=== PATIENT | female | born 1950 | race Caucasian/White ===

== ENCOUNTER 2025-04-14 08:58 | Outpatient (AMB) | payer MEDICARE, SELFPAY ==
--- NOTE | 2025-04-14 09:02 | A.OFFVIS_ITS ---
Vital Signs 3 04/14/25 09:04 Height 5 ft 3 in Weight 154 lb 5.177 oz BMI 27.3 BP 124/66 Blood Pressure Location Lt brachial Position Sitting Pulse 72 Pulse Source Pulse Oximeter Pulse Oximetry (%) 94 Oxygen Delivery Method Room Air Intake Visit Reasons: Hypothyroidism Intake Note: New patient present today for Hypothyroidism. 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 Preferred name Ariane Continue levothyroxine 75 mcg daily. Has been on this for 5 years, stable for some time. No recent TFTs in the chart. reports tiredness. reports cold intolerance. Constipation improved now. Lost 30 lbs after below mentioned surgeries but now gaining it back. no palpitations. No tremors. feels hair is thinner. no mood changes. 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 ? Patient denies any difficulty swallowing, pain on swallowing or voice changes or difficulty breathing. Patient denies any history of childhood neck radiation. Denies having ever used lithium, amiodarone or biotin supplements. Patient denies any family history of thyroid cancer. 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 Physical exam General: sitting comfortably in no acute distress HEENT: normocephalic/atraumatic, Neck: supple, prominent right side of the thyroid, possible nodule Cardiac: normal heart sounds Pulm: normal breath sounds B/L, no added breath sounds Abd: not distended, no tenderness PFSH Medical History (Updated 04/14/25 @ 09:34 by Jacqueline Bates MD) Thyromegaly Hypothyroid HLD (hyperlipidemia) HTN (hypertension) Surgical History (Updated 04/14/25 @ 09:10 by HUMAIRA Mcgarry) H/O bladder repair surgery History of colon resection H/O: hysterectomy Family History (Updated 04/14/25 @ 09:12 by HUMAIRA Mcgarry) Mother Cancer Father Stroke Advanced dementia Social History (Updated 04/14/25 @ 09:12 by HUMAIRA Mcgarry) Alcohol intake: current Alcohol intake frequency: 0-2 drinks per day Patient Tobacco Use Status: Never used Tobacco Physical Exam Vital Signs: Last Vital Signs Pulse 72 04/14/25 09:04 BP 124/66 04/14/25 09:04 Pulse Ox 94 04/14/25 09:04 Oxygen Delivery Method Room Air 04/14/25 09:04 BMI result Body Mass Index 27.3 Assessment & Plan Assessment & Plan (1) Hypothyroid: Code(s): E03.9 - Hypothyroidism, unspecified Category: Medical Qualifiers: 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 No recent TFTs in the chart. Her major concern is increased tiredness over the past few months, and she reports this is very different from her prior baseline. At this time we will check her thyroid function tests. She is on biotin supplements, I have asked her to hold these 3-4 days before doing blood work as biotin can interfere with thyroid function test. Plan: -continue levothyroxine 75 mcg daily -ordered TSH and free T4 -follow up in 8 weeks to discuss results (2) Thyromegaly: Code(s): E01.0 - Iodine-deficiency related diffuse (endemic) goiter Category: Medical Plan: Also noted to have a prominent right side of the thyroid, possible nodule on the right side. We will check ultrasound of the thyroid. 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
[2025-04-14 09:04] VITALS: BP 124/66; PULSE 72; O2SAT 94; BMI 27.3
--- OUTSIDE RECORDS SUMMARY | 2025-04-14 09:15 | XMS_ITS | Data Portability ---
Author Organization [place] - [facility], Allergy Address [address] [address] Care Team Providers Care Commercial Print Salesman Name Role Phone DEXTER BLACKMAN Primary Care Provider [phone] Assessment Encounter Date Assessment Date Assessment LastModified by Organization Details LastModified Time 10/05/2024 10/05/2024 Patient with persistent sensation of fullness left ear. She has left TMJ tenderness and some negative pressure on examination. Audiogram reviewed and stable. Discussed option of imaging but patient declines. Suggest warm compresses soft diet and massage jschreibstein Not available 10/05/2024 08:56:41 Plan of Treatment Reminders Order Date Submit Date Provider Last Modified By Organization Details Last Modified Time Details Appointments Hearing Test 2024 10:00A M Hearing Test Not available Not available Not available Establish ed 30 2024 10:30A M HEIDI STEPHENSON MD Not available Not available Not available Lab None recorded. Referral None recorded. Procedures None recorded. Surgeries None recorded. Imaging None recorded. Medication Orders None recorded. Patient TargetsNo targets recorded. Patient InstructionsNo instructions recorded. Reason for Referral None Reported. Results Created Date Observation Date Name Description Value Unit Range Abnormal Flag Note LastModifiedBy Organization Detail LastModifiedTime 10/05/20 24 audio gram No observ ation record ed. BARCODE Not Available 2023 10:56:30 10/06/20 24 audio gram No observ ation record ed. BARCODE Not Available 2023 16:09:00 Result Notes None recorded. Problems Name Problem SNOMED Code Status Onset Date Resolution Date Notes Provider Name and Address Organization Details Recorded Time Deviated nasal septum 544169346 Active 2023 Deviated nasal septum; Note: Date Diagnosed: 02/08/2024 10:31 AM (J34.2) Not Available [facility] 4 03:04:09 Sensorine ural hearing loss of bilateral ears 840965552 Active 2023 Sensorineu ral hearing loss, bilateral; Note: Date Diagnosed: 02/08/2024 10:19 AM (H90.3) Not Available [facility] 4 03:04:10 Abnormal auditory perceptio n 89885472 Active 2023 Other abnormal auditory perception s, left ear; Note: Date Diagnosed: 02/08/2024 10:31 AM (H93.292) Not Available [facility] 4 03:04:10 Chronic rhinitis 81090246 Active 2023 Chronic rhinitis; Note: Date Diagnosed: 02/08/2024 10:31 AM (J31.0) Not Available [facility] 4 03:04:11 Dysfuncti on of eustachia n tube 58734445 Active 2023 HEIDI QUINTERO MD [address] [facility],[place] [address], [place], [address] , [place] - [facility] 4 08:56:00 Abnormal auditory perceptio n 85460535 Active 2023 HEIDI QUINTERO MD [address] [facility],[place] [address], [place], [address] , [place] - [facility] 4 08:56:06 Obstructi ve sleep apnea syndrome 49524729 Active 2023 HEIDI QUINTERO MD 100 [facility], [place], [address] , [place] - [facility] [place] 4 09:42:02 Pain of temporoma ndibular joint 15554058 Active 2023 HEIDI QUINTERO MD 100 [facility], [place], [address] , [place] - [facility] [place] 4 09:42:08 Problem Notes None recorded. Procedures Surgical History Date Name Laterality Status Provider Name and Address Organization Details Recorded Time 10/05/20 24 Air & Speech Audio with Tymps - 56427, 05737 & 44206 completed Patrizia Meier [facility] 10/05/2024 09:20:20 hysterectomy completed HEIDI EARL MD 100 [facility],[place] [address], [place], [address], [facility] 10/05/2024 08:50:58 excision of colon completed HEIDI EARL MD [address],[facility], [place], [address], [facility] 10/05/2024 08:52:28 Imaging Results None recorded. Procedure Notes None recorded. Medical Equipment None Reported. Allergies Allergen ID Allergen Name Allergen Category Reaction Reaction Severity Criticality Documentation Date Start Date Code Code System Note Provider Name and Address Organization Details Recorded Time 070763 codeine medicatio n other Not available Not available 05/20/2024 2670 RxNorm React ion: Unkno wn; Not Available [facility] 4 00:35:40 861686 Substance with sulfonami de structure and antibacte rial mechanism of action (substanc e) medicatio n other Not available Not available 05/20/2024 55317 8003 SNOMED React ion: Unkno wn; Not Available [facility] 4 00:35:40 383927 Product containin g penicilli n (product) medicatio n other Not available Not available 05/20/2024 97358 8001 SNOMED React ion: Unkno wn; Not Available [facility] 4 00:35:41 Medications Name Sig Start Date Stop Date Status Note LastModified by Organization Details LastModified Time acetaminophe n 325 mg tablet TAKE 1 TABLET BY MOUTH EVERY 4 HOURS, NEEDED FOR PAIN active Not Available Not Available No t Available loperamide 2 mg capsule TAKE 1 CAPSULE BY MOUTH TWO TIMES A DAY BEFORE BREAKFAST AND DINNER NEEDED FOR LOOSE STOOL active Not Available Not Available No t Available atorvastatin 10 mg tablet TAKE 1 TABLET BY MOUTH EVERY DAY active Not Available Not Available No t Available azithromycin 250 mg tablet TAKE 2 TABLETS BY MOUTH TODAY, THEN TAKE 1 TABLET DAILY FOR 4 DAYS DIRECTED active Not Available Not Available No t Available amlodipine 5 mg tablet TAKE 1 TABLET BY MOUTH EVERY DAY active Not Available Not Available No t Available levothyroxin e 75 mcg tablet TAKE 1 TABLET BY MOUTH EVERY DAY active Not Available Not Available No t Available doxycycline monohydrate 100 mg capsule TAKE 1 CAPSULE BY MOUTH TWICE A DAY FOR 7 DAYS active Not Available Not Available No t Available oxybutynin chloride ER 5 mg tablet,exten ded release 24 hr TAKE 1 TABLET BY MOUTH EVERY DAY active Not Available Not Available No t Available fluticasone propionate 50 mcg/actuatio n nasal spray,suspen alida SPRAY 2 SPRAYS INTRANASALL Y DAILY active Not Available Not Available No t Available oxycodone 5 mg tablet TAKE 1 TABLET BY MOUTH EVERY 6 HOURS NEEDED FOR PAIN active Not Available Not Available No t Available enoxaparin 40 mg/0.4 mL subcutaneous syringe INJECT THE CONTENTS OF 1 SYRINGE SUBCUTANEOU SLY EVERY DAY FOR 28 DAYS active Not Available Not Available No t Available nitrofuranto in monohydrate/ macrocrystal s 100 mg capsule TAKE 1 CAPSULE BY MOUTH TWICE DAILY FOR 5 DAYS. active Not Available Not Available No t Available Vitals Date Recorded Body height Body mass index (BMI) Body weight Provider Name and Address Organization Details Last Updated DateTime 10/05/2024 160.02 cm 26.9 kg/m2 54415.04 g Enmanuel Blackburn [place] - [facility] 10/05/2024 08:49:09 Social History None recorded. Functional Status None recorded. Mental Status None recorded. Family History Nothing Reported. Medical History Condition Response Cancer Y Hypertension Y Sleep Disorder Gynecological HistoryNo gynecological history recorded. Obstetrics History GPAL:G 0 P 0 0 0 0 Past Encounters Encounter ID Performer Location Encounter Start Date Encounter Closed Date Diagnosis/Indication Diagnosis SNOMED-CT Code Diagnosis ICD10 Code Diagnosis Note [id number] HEIDI QUINTERO MD [facility] [address] [address] 10/05/2024 08:35:18 10/05/2024 09:46:18 Abnormal auditory perception 89789621 H93.292 Dysfunctio n of eustachian tube 13732447 H69.92 Obstructiv e sleep apnea syndrome 76797580 G47.33 Pain of temporomandibular joint 51695740 M26.629 Appears to have referred discomfort due to TMJ dysfunctio n left side. She does have a mandibular appliance but has not been wearing it recently since she started CPAP. She will try to wear both if possible [id number] TAYLOR MOYA [facility] [address] [place] [address] 10/05/2024 09:19:33 10/06/2024 06:58:33 Sensorineural hearing loss of bilateral ears 655790688 H90.3 Audiologic al evaluation results: Right ear: Normal sloping to a mild SNHL at 3kHz returnign to WNL with excellent word recognitio n. Left ear: Normal sloping to a mild SNHL at 2kHz returnign to WNL with excellent word recognitio n.Asymmetr ic hearing loss from 1-3kHz, worst in the right. Tympanomet ry: Right Ear:Type A Left Ear:Type A Health Concerns Section Related Observation LastModified by Organization Detai ls LastModified Time None Recorded Concern Status LastModified by Organization Details LastModified Time None Recorded Advance Directives Directive None Recorded Payers Insurance Date Sequence Insurance Name Policy Number Policy Morel Covered Member ID Morel Member ID Guarantor Name 10/05/2024 2 [facility] [id number] Marla A Constant [id number] Marla A Constant 10/05/2024 1 [place]IC[place] [employer] [facility] Marla A Constant [id number] Marla A Constant Notes Date Note Type Note Provider Name and Address Organization Details Recorded Time 10/05/2024 text/html Patient continue s to have intermittent sensation of fullness in the left ear. Previously felt to be likely related to eustachian tube dysfunction and TMJ. She had asymmetry of hearing right compared to left. Since our last visit she had her ileostomy reversed. Feels that she is doing very well. No other complaints. Specifically no eating, drinking, or swallowing difficulties. No change in voice HEIDI EARL MD [address] [address], [place], [address], [facility] - [facility] 10/05/2024 09:43:33 OBGyn Episode No OBEpisode recorded.
== END 2025-04-14 09:36 | disposition home or self-care (01) ==
LOC: HO.ENCR 08:59
PROVIDERS: Visit Provider Student in an Organized Health Care Education/Training Program
DX: E06.3 Autoimmune thyroiditis (principal); E01.0 Iodine-deficiency related diffuse (endemic) goiter
CPT/HCPCS: 99204

== ENCOUNTER → 2025-04-14 08:58 | Outpatient (BNVA) | payer MEDICARE, SELFPAY | PROVIDERS: Visit Provider Student in an Organized Health Care Education/Training Program | DX: E06.3 Autoimmune thyroiditis (principal); E01.0 Iodine-deficiency related diffuse (endemic) goiter | CPT/HCPCS: 99202 ==

== ENCOUNTER 2025-04-24 14:22 | Outpatient (REF) | payer MEDICARE, SELFPAY ==
--- OUTSIDE RECORDS SUMMARY | 2025-04-24 15:01 | XMS_ITS | Data Portability ---
Author Organization [place] - [facility], Allergy Address [address] [address] Care Team Providers Care Market Maker Name Role Phone DEXTER BLACKMAN Primary Care Provider Assessment Encounter Date Assessment Date Assessment LastModified [...] Organization Details Recorded Time Deviated nasal septum 136931570 Active 2023 Deviated nasal septum; Note: Date Diagnosed: 02/08/2024 10:31 AM (J34.2) Not Available [facility] 4 03:04:09 Sensorine ural hearing loss of bilateral ears 022113970 Active 2023 Sensorineu ral hearing loss, bilateral; Note: Date Diagnosed: 02/08/2024 10:19 AM (H90.3) Not Available [facility] 4 03:04:10 Abnormal auditory perceptio n 21283808 Active 2023 Other abnormal auditory perception s, left ear; Note: Date Diagnosed: 02/08/2024 10:31 AM (H93.292) Not Available [facility] 4 03:04:10 Chronic rhinitis 99593016 Active 2023 Chronic rhinitis; Note: Date Diagnosed: 02/08/2024 10:31 AM (J31.0) Not Available [facility] 4 03:04:11 Dysfuncti on of eustachia n tube 59773576 Active 2023 HEIDI QUINTERO MD 100 [facility],[place] [address], [place], [address] , [place] - [facility] 4 08:56:00 Abnormal auditory perceptio n 49842125 Active 2023 HEIDI QUINTERO MD 100 [facility],[place] [address], [place], [address] , [place] - [facility] 4 08:56:06 Obstructi ve sleep apnea syndrome 71791976 Active 2023 HEIDI QUINTERO MD 100 [facility], [place], [address] , [place] - [facility] 4 09:42:02 Pain of temporoma ndibular joint 63596795 Active 2023 HEID[facility] QUINTERO MD 100 [facility] [place], [place], [address] , [place] - [facility] 4 09:42:08 Problem Notes None recorded. Procedures Surgical History Date Name Laterality Status Provider Name and Address Organization Details Recorded Time 10/05/20 24 Air & Speech Audio with Tymps - 72429, 26311 & 15143 completed Patrizia Meier [facility] 10/05/2024 09:20:20 hysterectomy completed HEIDI EARL MD 100 [facility],[place] [place] [address], [place], [address], [facility] 10/05/2024 08:50:58 excision of colon completed HEIDI EARL MD [address],[facility], [place], [address], [facility] 10/05/2024 08:52:28 Imaging Results None recorded. Procedure Notes None recorded. Medical Equipment None Reported. Allergies Allergen ID Allergen Name Allergen Category Reaction Reaction Severity Criticality Documentation Date Start Date Code Code System Note Provider Name and Address Organization Details Recorded Time 438338 codeine medicatio n other Not available Not available 05/20/2024 2670 RxNorm React ion: Unkno wn; Not Available [facility] 4 00:35:40 091170 Substance with sulfonami de structure and antibacte rial mechanism of action (substanc e) medicatio n other Not available Not available 05/20/2024 28439 8003 SNOMED React ion: Unkno wn; Not Available [facility] 4 00:35:40 851191 Product containin g penicilli n (product) medicatio n other Not available Not available 05/20/2024 16505 8001 SNOMED React ion: Unkno wn; Not Available [facility] 4 00:35:41 Medications Name Sig Start Date [...] Updated DateTime 10/05/2024 160.02 cm 26.9 kg/m2 48167.04 g Enmanuel Blackburn [place] - [facility] 10/05/2024 08:49:09 Social History None recorded. Functional Status None recorded. Mental Status None recorded. Family History Nothing Reported. Medical History Condition Response Cancer Y Sleep Disorder Hypertension Y Gynecological HistoryNo gynecological history recorded. Obstetrics History GPAL:G 0 P 0 0 0 0 Past Encounters Encounter ID Performer Location Encounter Start Date Encounter Closed Date Diagnosis/Indication Diagnosis SNOMED-CT Code Diagnosis ICD10 Code Diagnosis Note [id number] HEIDI QUINTERO MD [facility] [address] [address] 10/05/2024 08:35:18 10/05/2024 09:46:18 Abnormal auditory perception 61980434 H93.292 Dysfunctio n of eustachian tube 11454794 H69.92 Obstructiv e sleep apnea syndrome 26760741 G47.33 Pain of temporomandibular joint 75761518 M26.629 Appears to have referred discomfort due to TMJ dysfunctio n left side. She does have a mandibular appliance but has not been wearing it recently since she started CPAP. She will try to wear both if possible [id number] TAYLOR MOYA [facility] 100 [place] [address] 10/05/2024 09:19:33 10/06/2024 06:58:33 Sensorineural hearing loss of bilateral ears 249329640 H90.3 Audiologic al evaluation results: Right ear: [...] Morel Member ID Guarantor Name 10/05/2024 2 [facility] [id number] Marla A Constant [id number] Marla A Constant 10/05/2024 1 [place]IC[place]: [employer] [facility] Marla A Constant [id number] Marla A Constant Notes Date Note [...] change in voice HEIDI EARL MD [address] [address], [place], [address], [facility] - [facility] 10/05/2024 09:43:33 OBGyn Episode No OBEpisode recorded.
--- OUTSIDE RECORDS SUMMARY | 2025-04-24 15:01 | XMS_ITS | Encounter Summary ---
Author Organization [facility] Address [address] [place] [address] Care Team Providers Care Pie Filling Mixer Name Role Phone Andrea Abdullahi MD Primary Care Provider [phone] Encounter Details Date Type Department Care Team (Late st Contact Info) Description 12/08/2024 Lab Requisition [facility] - Main Lab [address] [place] [phone] Logan Sánchez MD [address] [address] Frequency of micturition Social History Tobacco Use Types Packs/Day Years Used Date Smoking Tobacco: Never Assessed Comments Unknown Sex and Gender Information Value Date Recorded Sex Assigned at Not on file Legal Sex Female 6:10 PM EST Gender Identity Not on file Sexual Orientation Not on file documented as of this encounter Plan of Treatment Not on file documented as of this encounter Procedures Procedure Name Priority Date/Time Associated Diagnosis Comments CULTURE URINE Routine 12/08/2024 12:00 AM EST Frequency of micturition documented in this encounter Results * Culture urine (12/08/2024 12:00 AM EST) Culture, Urine No growth 12/09/2024 1:15 PM EST [facility] Urine Urine specimen obtained by clean catch procedure / Unknown 12/08/2024 12/08/2024 6:15 PM EST Logan Sánchez MD LAB MICROBIOLOGY - GE NERAL ORDERABLES Final Result [facility] [address] [place], [place] [address] [phone] documented in this encounter Visit Diagnoses Diagnosis Frequency of micturition Urinary frequency documented in this encounter Care Teams Pie Filling Mixer Relationship Specialty Start Date End Date Andrea Abdullahi MD [address] [place] [address] PCP - General Internal Medicine 12/08/24 documented as of this encounter
[2025-04-24 16:31] LABS: Free T4 (Free Thyroxine) 0.99 ng/dL (0.71-1.85); Thyroid Stimulating Hormone 1.91 uIU/mL (0.32-4.0)
== END 2025-04-24 14:23 | disposition home or self-care (01) ==
LOC: HO.LAB 14:22
PROVIDERS: PCP Internal Medicine; Visit Provider Student in an Organized Health Care Education/Training Program
DX: E03.9 Hypothyroidism, unspecified (principal)
CPT/HCPCS: 36415; 84439; 84443

== ENCOUNTER 2025-05-25 15:36 | Outpatient (REF) | payer MEDICARE, SELFPAY ==
--- OUTSIDE RECORDS SUMMARY | 2025-05-23 23:59 | XMS_ITS | Continuity of Care Document ---
Author Organization [facility] Address [address] [place] [address] [address] [place] [address]- Care Team Providers Care Competitive Intelligence Manager Name Role Phone Kaylen WILL, Andrea Prajapati Primary Care Physician [phone] Encounter [place] [facility] R [id number] Date(s): 05/16/25 - 05/23/[address] [place], [place] [address] Encounter Diagnosis Chronic constipation(Discharge Diagnosis) - 05/16/25 Attending Physician: Selene TURNER, Elizabeth Bolivar Encounter Type: Office Visit Allergies, Adverse Reactions, Alerts Substance Criticality Severity Reaction Reaction Severity Status codeine headace, vomit Hives Active penicillins 1 Hives Active sulfa drugs 2 headaches Active Latex Skin rash Active Other Food Allergy 3 Scallop allergy=vomitting Active 1tolerates cefepime 2Pt unsure of reaction... 3scallops - throw up Immunizations Given and Recorded Vaccine Date Status Refusal Reason tetanus-diphtheria toxoids (Td) 06/17/24 Given tetanus-diphtheria toxoids (Td) 03/20/05 Recorded pneumococcal 20-valent conjugate vaccine 06/12/23 Given SARS-CoV-2 (COVID-19) mRNA BNT-162b2 vac 07/22/21 Recorded SARS-CoV-2 (COVID-19) mRNA BNT-162b2 vac 01/20/21 Recorded SARS-CoV-2 (COVID-19) mRNA BNT-162b2 vac 12/30/20 Recorded pneumococcal 13-valent vaccine 01/23/17 Recorded pneumococcal 23-valent vaccine 01/15/15 Recorded tetanus/diphtheria/pertussis, acel(Tdap) 01/13/14 Recorded Zoster Vaccine Live 03/08/13 Recorded Medications amLODIPine 5 mg oral tablet 1 tablet = 5 mg, By Mouth, Daily, TAKE 1 TABLET BY MOUTH EVERY DAY, # 90 tablet, 3 Refills, Maintenance, 04/10/25 8:50:00 AM EDT, Tablet, [facility]/pharmacy #[id number], Partial fill upon patient request if the prescription is for a schedule II opioid drug., 160, cm, 04/10/25 8:18:00 EDT, Height, 68, kg, 12/29/24 12:10:00 EDT, Dry Weight Start Date: 04/10/25 Stop Date: 04/05/26 Status: Ordered Quantity: 90.0 Unit: tablet Repeat number: 4 aspirin 81 mg oral tablet 1 tablet = 81 mg, By Mouth, Daily, # 90 tablet, 0 Refills, Maintenance, 09/24/23 12:36:00 PM EST, Tablet, Partial fill upon patient request if the prescription is for a schedule II opioid drug. Start Date: 09/24/23 Status: Ordered Quantity: 90.0 Unit: tablet Repeat number: 1 atorvastatin 10 mg oral tablet 1 tablet = 10 mg, By Mouth, Daily, # 90 tablet, 3 Refills, Maintenance, 04/10/25 8:50:00 AM EDT, [id number], Partial fill upon patient request if the prescription is for a schedule II opioid drug., 160, cm, 04/10/25 8:18:00 EDT, Height, 68, kg, 12/29/24 12:10:00 EDT, Dry Weight Start Date: 04/10/25 Status: Ordered Quantity: 90.0 Unit: tablet Repeat number: 4 Claritin 10 mg oral tablet 10 mg, 1, tablet, By Mouth, Daily in AM, Maintenance, 09/13/23 12:28:00 AM EST, Partial fill upon patient request if the prescription is for a schedule II opioid drug. Start Date: 09/13/23 Status: Ordered Repeat number: 1 CPAP Machine CPAP 6, # 1 each, Maintenance, 05/16/24 12:51:00 PM EDT, Supply Start Date: 05/16/24 Status: Ordered Quantity: 1.0 Unit: each Repeat number: 1 Indications: Obstructive sleep apnea (adult) (pediatric); Curcumin 95 = 500 mg, By Mouth, Daily, 0 Refills, Maintenance, 03/06/25 3:54:00 PM EDT, Partial fill upon patient request if the prescription is for a schedule II opioid drug. Start Date: 03/06/25 Status: Ordered Repeat number: 1 fluticasone 50 mcg/inh nasal spray 2 sprays = 100 mcg, Nares, Both, Daily in AM, 0 Refills, Maintenance, 02/19/24 12:08:00 PM EDT, [facility], Partial fill upon patient request if the prescription is for a schedule II opioid drug. Start Date: 02/19/24 Status: Ordered Repeat number: 1 levothyroxine 75 mcg (0.075 mg) oral tablet 1 tablet, By Mouth, Daily, # 90 tablet, 3 Refills, Maintenance, 04/10/25 8:50:00 AM EDT, [facility]/pharm[facility] #[id number], 160, cm, 04/10/25 8:18:00 EDT, Height, 68, kg, 12/29/24 12:10:00 EDT, Dry Weight Start Date: 04/10/25 Status: Ordered Quantity: 90.0 Unit: tablet Repeat number: 4 oxybutynin 10 mg/24 hr oral tablet, extended release 90 each, 0 Refill(s), TAKE 1 TABLET BY MOUTH EVERY DAY, 0 Refills, 03/06/25 4:11:00 PM EDT, Partial fill upon patient request if the prescription is for a schedule II opioid drug. Start Date: 03/06/25 Status: Ordered Repeat number: 1 Pelvic Floor PT Pelvic Floor PT, See Instructions, # 1 each, Refills 0, Tot. Refills 0, Maintenance, Pelvic floor physical therapy, 05/17/25 2:00:00 PM EDT, Supply Start Date: 05/17/25 Status: Ordered Quantity: 1.0 Unit: each Repeat number: 1 Vitamin D3 2000 intl units oral capsule 1 capsule = 50 mcg, By Mouth, Daily, # 60 capsule, 0 Refills, Maintenance, 10/05/24 11:02:00 AM EST, Capsule, Partial fill upon patient request if the prescription is for a schedule II opioid drug. Start Date: 10/05/24 Status: Ordered Quantity: 60.0 Unit: capsule Repeat number: 1 Problem List Condition Confirmation Course Effective Dates Status Health Status Informant Allergic rhinitis Confirmed Active Splenic artery aneurysm 1 Confirmed Active Anxiety Confirmed Active Benign paroxysmal vertigo Confirmed Active Chronic constipation Confirmed Active Pancreatic cyst Confirmed Active Somnolence, daytime Confirmed Active Gallstones Confirmed Active Status post closure of ileostomy Confirmed Active History of endometrial cancer Confirmed Active Status post partial colectomy Confirmed Active Hypercholesterolemia Confirmed Active HLD (hyperlipidemia) 2 Confirmed Active Hypertension Confirmed Active Hypothyroidism 3 Confirmed Active Insomnia Confirmed Active Lind syndrome Confirmed Active Morning stiffness of joints Confirmed Active Obstructive sleep apnea Confirmed Active OA (osteoarthritis), shoulder and neck Confirmed Active UI (urinary incontinence) Confirmed Active Varicose veins Confirmed Active Colovesical fistula Confirmed Active 1Noted on abdominal CT September 2018. 210-year cardiac risk 14.0%. 3Antibody negative. Diagnosis Diagnosis Type Effective Dates Health Status Clinical Service Informant Chronic constipation Discharge Diagnosis 05/16/25 Social History Social History Type Response Smoking Status Never (less than 100 in lifetime) entered on: 08/27/18 Sex Sex Representation Female (finding) Note * Shelby Pham: PERFORM Event Display: Patient Education/Instruction Authored Date: [id number] Ambulatory Adult Visit Summary [facility] Surgery [address] [place] [address] Drive [address] [place] [address] Name: BRITT AGUILERA : 1950?? Visit: 05/16/2025 11:11?? Ambulatory Visit Instructions ?? Your Care Team Primary Care Provider Kaylen WILL, Andrea Prajapati? This Visit Provider Selene TURNER, Elizabeth Bolivar Your Diagnosis Chronic constipation What to do next Scheduled Follow-Up Appointments Thursday 8:00 AM EDT ?? With: Ralph HENDERSON, Carmela Woodard Where: [facility] [address] [facility] 4[address] [place] [address] [place] [address]- Status: Pending Thursday 9:00 AM EDT ?? With: Shu HENDERSON, Ruba Reed Where: [facility] [address] [place] [address]- Status: Pending Future Orders CBC w/ Differential - Once, *Est. 05/19/24 +/- 28 days, Single or Recurring Future Order?? Ferritin - Once, *Est. 05/19/24 +/- 28 days, Single or Recurring Future Order?? Folate Level - Once, *Est. 05/19/24 +/- 28 days, Single or Recurring Future Order?? Vitamin B12 Level (B12 Vitamin Level) - Once, *Est. 05/19/24 +/- 28 days, Single or Recurring Future Order?? CBC - Routine, Once, 08/16/24 9:45:00 EDT, Future Order, [facility], Blood?? Comprehensive Metabolic Panel - Routine, Once, 08/16/24 9:45:00 EDT, Future Order, [facility], Blood?? Lipid Panel - Routine, Once, 08/16/24 9:45:00 EDT, Future Order, [facility], Blood?? Thyroid Panel - Routine, Once, 08/16/24 9:45:00 EDT, Future Order, [facility], Blood?? CBC - Routine, Once, 09/07/25 8:50:00 EST, Future Order, [facility], Blood?? Comprehensive Metabolic Panel - Routine, Once, 09/07/25 8:50:00 EST, Future Order, [facility], Blood?? Thyroid Panel - Routine, Once, 09/07/25 8:50:00 EST, Future Order, [facility], Blood?? Lipid Panel - Routine, Once, 09/07/25 8:50:00 EST, Future Order, [facility], Blood?? Medications The list below reflects the information in our records and provided by you today along with any changes made during this visit. Please continue your medications until treatment is completed or stopped by your provider. If this is different from the information you have or there are other questions,please contact the prescribing provider. What How Much When Why Instructions Unchanged Amlodipine (amLODIPine 5 mg oral tablet) 1 tab(s) Oral Daily Duration: 90 Days TAKE 1 TABLET BY MOUTH EVERY DAY ?? Unchanged Aspirin (aspirin 81 mg oral tablet) 1 tab(s) Oral Daily Unchanged Atorvastatin (atorvastatin 10 mg oral tablet) 1 tab(s) Oral Daily Unchanged Cholecalciferol (Vitamin D3 2000 intl units oral capsule) 1 capsule Oral Daily Unchanged Durable Medical Equipment (CPAP Machine) CPAP 6 Obstructive sleep apnea Unchanged Fluticasone Nasal (fluticasone 50 mcg/ inh nasal spray) 2 spray(s) Nares, Both Daily in the morning Unchanged Levothyroxine (levothyroxine 75 mcg (0.075 mg) oral tablet) 1 tab(s) Oral Daily Unchanged Loratadine (Claritin 10 mg oral tablet) 1 tab(s) Oral Daily in the morning Unchanged Oxybutynin (oxybutynin 10 mg/ 24 hr oral tablet, extended release) 90 each, 0 Refill(s), TAKE 1 TABLET BY MOUTH EVERY DAY ?? Unchanged turmeric (Curcumin 95) 500 Milligram Oral Daily Medications and Immunizations Administered Medications Given During Visit No medications given during this visit.?? Allergies (NKA means No Known Allergies) Latex??(Skin rash) Other Food Allergy??(Scallop allergy=vomitting) codeine??(headace, vomit, Hives) penicillins??(Hives) sulfa drugs??(headaches) Common Emergency Awareness Tips IS IT A STROKE? Act FAST and Check for these signs: FACE Does the face look uneven? ARM Does one arm drift down? SPEECH Does their speech sound strange? TIME Call at any sign of stroke ?? Heart Attack Signs Chest discomfort: Most heart attacks involve discomfort in the center of the chest and lasts more than a few minutes, or goes away and comes back. It can feel like uncomfortable pressure, squeezing, fullness or pain. Discomfort in upper body: Symptoms can include pain or discomfort in one or both arms, back, neck, jaw or stomach. Shortness of breath: With or without discomfort. Other signs: Breaking out in a cold sweat, nausea, or lightheaded. Remember, MINUTES DO MATTER. If you experience any of these heart attack warning signs, call to get immediate medical attention! ?? Smoking can increase your chances of developing chronic health problems and can cause harmful effects to other family members in your house. If you smoke, you are strongly encouraged to quit. Please call [facility] at [phone] or 1-893-497mphoria ([phone]) or log in to [email or web address] for referrals to smoking cessation programs. ?? The National Suicide Prevention Hotline is available 11/05 if you or someone you know needs to find a reason to keep living. By calling 1-327-005-fnnb (2945) you'll be connected to a skilled, trained counselor at a crisis center in your area. [facility] You can view and manage your care through the patient portal or by using a health care herb of your choosing. [employer] is a website that allows you to securely view your medical information including your hospital discharge summary, office visit summaries, medications and follow-up visits. You can also request appointments, renew medications, and request access to your medical information using a health care herb of your choosing, or just ask a question. You can enroll at [email or web address] or register during your next office visit. [facility], in keeping with [facility] guidance, no longer requires face masks for staff, patientsor visitors in most situations. Similiar to time spent indoors at other locations, there is the chance that you were exposed to repiratory viruses during your time with us (such as flu or COVID-19). If you develop symptoms concerning for a viral respiratory infection, please seek testing (and treatment if indicated) from your medical provider or home test kit. ?? Disclaimer: The information provided is of a general nature and is intended to be used in conjunction with the recommendations and advice of your health care practitioner. Every effort has been made to ensure that the information provided is accurate and complete at the time it is provided to you however, as your needs change, or, as new information becomes available, different or additional instructions may be required. ?? If you have questions, please consult with your primary care provider or pharmacist, as appropriate. This information is not intended to serve as substitution for assessment and evaluation by a qualified health care provider. If you do not have a primary care provider, you may find a [facility] provider by calling [facility] at [phone]. Patient Care team information Care Team Personnel Name: Belkys Warren RN Position: [facility] RN Member Role: Primary Care Nurse Name: Rose Rajput RN Position: S RN Member Role: Primary Care Nurse Name: Andrea Abdullahi MD Position: [facility] Physician - Primary Care Member Role: PCP Address: [address] [place] [address]- Telecom: Name: Heena Workman RN Position: [facility] RN Member Role: Primary Care Nurse Name: John Valles RN Position: [facility] RN Member Role: Primary Care Nurse Name: Velia Diane RN Position: [facility] RN Member Role: Primary Care Nurse Name: Erica Tovar RN Position: [facility] RN Member Role: Primary Care Nurse Name: Dex Riley RN Position: [facility] RN Member Role: Primary Care Nurse Name: Anali Benz RN Position: [facility] RN Member Role: Primary Care Nurse Name: Hannah Blackburn RN Position: [facility] RN Member Role: Primary Care Nurse Name: Elizabeth Jutsin RN Position: [facility] RN Member Role: Primary Care Nurse Name: Trudi Rosales RN Position: [facility] RN Member Role: Primary Care Nurse Care Team Related Persons Name: MORIAH AGUILERA Name: JAKOB PRIETO Insurance Providers Guarantor name: BRITT AGUILERA Health Plan Information #: 1 Payer: MEDICARE B Payer Identifier: Member Number: [id number] Group Number: Subscriber Identifier: [id number] Relationship to Subscriber: self Coverage Type: NA Coverage Verification Date: Telecom: NA Address: Health Plan Information #: 2 Payer: MEDEX SECONDARY ONLY Payer Identifier: Member Number: [id number] Group Number: [id number] Subscriber Identifier: [id number] Relationship to Subscriber: self Coverage Type: Medicare Other Coverage Verification Date: Telecom: Address:
--- NOTE | ~2025-05-25 | US_ITS ---
EXAMINATION: US THYROID HISTORY: E01.0 - Iodine-deficiency related diffuse (endemic) goiter TECHNIQUE: Real-time grayscale ultrasound imaging was performed and images were reviewed. COMPARISON: There are no prior studies available for comparison. FINDINGS: SIZE: The right thyroid lobe measures 5.6 x 1.9 x 1.5 cm. The left thyroid lobe measures 4.4 x 1.8 x 1.6 cm. The isthmus measures 2 mm. FLOW: Flow to the gland is normal. ECHOGENICITY: The echotexture of the gland is homogeneous. NODULES: There is a 5 mm spongiform nodule in the midportion of the right thyroid lobe. Additional right-sided nodules are identified as described below: Nodule #: 1 Location: Midportion of the right thyroid lobe measuring 7 x 5 x 7 mm. Shape: Wider than tall (0 points) Margins: Ill-defined (0 points) Echotexture: Isoechoic (1 point) Composition: Mostly solid (2 points) Calcifications: None (0 points) Total points: 3 TIRADS: TR3: Mildly suspicious. Nodule #: 2 Location: Mid to lower pole of the right thyroid lobe measuring 7 x 4 x 8 mm. Shape: Wider than tall (0 points) Margins: Ill-defined (0 points) Echotexture: Isoechoic (1 point) Composition: Mostly solid (2 points) Calcifications: None (0 points) Total points: 3 TIRADS: TR3: Mildly suspicious. US/US thyroid IMPRESSION: Subcentimeter right thyroid nodules as described. None of the nodules meet ACR TI-RADS criteria for fine needle aspiration or follow up. ACR TI-RADS Guidelines TR1 (0 points): Benign. No follow-up or biopsy required TR2 (2 points): Not Suspicious. No biopsy or follow up indicated TR3 (3 points): Mildly Suspicious. FNA if >= 2.5 cm, Follow if >= 1.5 cm TR4 (4-6 points): Moderately Suspicious. FNA if >= 1.5 cm, Follow if >= 1.0 cm TR5 (>=7 points): Highly Suspicious. FNA if >= 1.0 cm, Follow if >= 0.5 cm Electronically signed by: Yomi Pang MD 05/26/2025 07:09 AM EDT RP
--- OUTSIDE RECORDS SUMMARY | 2025-05-25 15:39 | XMS_ITS | Clinical Summary ---
Author Organization [facility] Address [address] [place] [address] Phone Care Team Providers Care Data Base Design Analyst Name Role Phone Andrea Adbullahi MD Primary Care Provider [phone] Allergies Active Allergy Reactions Criticality Noted Date Comments Codeine Other (See Comments) 07/03/2023 Latex Rash Low 07/03/2023 Penicillin Erythema Multiforme 07/03/2023 tolerates cefepime Sulfa (Sulfonamide Antibiotics) 07/03/2023 Pt unsure of reaction... Medications amLODIPine (NORVASC) 5 MG tablet Take 1 tablet by mouth every morning. 04/07/2023 Active levothyroxine (SYNTHROID, LEVOTHROID) 75 MCG tablet Take 1 tablet by mouth every morning. 04/06/2023 Active aspirin 81 mg chewable tablet Take 81 mg by mouth daily. Active Family History Medical History Relation Comments Dementia Father Relation Status Comments Father Mother Social History Tobacco Use Types Packs/Day Years Used Date Smoking Tobacco: Never Smokeless Tobacco: Never Tobacco Cessation:Counseling Given: Not Answered Alcohol Use Standard Drinks/Week Comments Yes 0 (1 standard drink = 0.6 oz pur e alcohol) Education Answer Date Recorded Are you interested in more education? Not on trinity e 05/13/2023 Are you concerned about learning? Not on file 05/13/2023 No 05/13/2023 No 05/13/2023 Digital Access Answer Date Recorded No 05/13/2023 No 05/13/2023 Reliable internet access at home? Not on file 05/13/2023 Device with a working camera? Not on file Comments Unknown Sex and Gender Information Value Date Recorded Sex Assigned at Female 06/28/2024 10:58 AM EDT Legal Sex Female 10:17 AM EDT Gender Identity Female 06/28/2024 10:58 AM EDT Sexual Orientation Not on file Last Filed Vital Signs Vital Sign Reading Time Taken Comments Blood Pressure 123/64 07/03/2023 10:40 AM EDT Pulse 65 07/03/2023 10:40 AM EDT Temperature - - Respiratory Rate - - Oxygen Saturation - - Inhaled Oxygen Concentration - - Weight 75 kg (165 lb 4.8 oz) 07/03/2023 10:40 AM EDT Height 160 cm (5' 3 ) 07/03/2023 10:40 AM EDT Body Mass Index 29.28 07/03/2023 10:40 AM EDT Plan of Treatment Health Maintenance Due Date Last Done Comments Adult Td,Tdap Booster 1950 LIPID PANEL 1950 TSH LEVEL 1950 DEPRESSION SCREENING 1961 HEPATITIS C SCREENING 1967 COLOGUARD 1994 COLONOSCOPY 1994 COLORECTAL CANCER SCREENING 1994 FIT TEST 1994 FOBT 1994 SIGMOIDOSCOPY 1994 VIRTUAL COLONOSCOPY 1994 PNEUMOCOCCAL VACCINES (50+ y ears) (1 of 1 - PCV) 1999 ZOSTER VACCINES (1 of 2) 1999 OSTEOPOROSIS SCREENING INITI AL (ONE-TIME) 2014 COVID-19 VACCINE (2023-2 5 season) 2024 RSV VACCINE (1 - 1-dose 75+ series) 2024 SMOKING STATUS SCREENING (On ce After 26 Yrs) Completed 07/03/2023 HEPATITIS A VACCINES Aged Out No long er eligible based on patient's age to complete this topic HIB VACCINES Aged Out No longer eligi ble based on patient's age to complete this topic MENINGOCOCCAL VACCINES (ACWY) Aged Out No longer eligible based on patient's age to complete this topic MENINGOCOCCAL VACCINES (B) Aged Out N o longer eligible based on patient's age to complete this topic Medical Devices Not on file Insurance MEDICARE PART A & B Member Subscriber Plan / Payer ( fective 2014-) Name:Marla Watson Member ID:[id number] Relation to Subscriber:Self Name:Marla Watson Subscriber ID:[id number] Payer ID:[id number] Group ID:Not on file Type:Medicare Address: [employer] [address] [employer] MEDEX SUPPLEMENT MEDICARE PART A & B [employer] MEDEX SUPPLEMENT MEDICARE PART A & B [employer] MEDEX SUPPLEMENT Member Subscriber Plan / [facility] Name:Marla Watson Relation to Subscriber:Self Name:Marla Watson Payer ID:[id number] (NAIC) Type:Indemnity Address: [facility] [id number] [place] [address] MEDICARE PART A & B [employer] MEDEX SUPPLEMENT MEDICARE PART A & B [employer] MEDEX SUPPLEMENT MEDICARE PART A & B [employer] MEDEX SUPPLEMENT Care Teams Data Base Design Analyst Relationship Specialty Start Date End Date Andrea Abdullahi MD [address] [place] [id number] PCP - General Internal Medicine 05/13/23 Additional Source Comments The information contained in this document represents components of the legal health record. It is not the complete legal health record.[facility]
--- OUTSIDE RECORDS SUMMARY | 2025-05-25 15:39 | XMS_ITS | Encounter Summary ---
Author Organization [facility] Address [address] [place] [address] Care Team Providers Care Wire Technician Name Role Phone Andrea Abdullahi MD Primary Care Provider [phone] Encounter Details Date Type Department Care Team (Late st Contact Info) Description 12/08/2024 Lab Requisition [facility] - Main Lab [address] [place] [id number] Logan Sánchez MD [address] [address] Frequency of micturition Social History Tobacco Use [...] Urine No growth 12/09/2024 1:15 PM EST [facility] Urine Urine specimen obtained by clean catch procedure / Unknown 12/08/2024 12/08/2024 6:15 PM EST Logan Sánchez MD LAB MICROBIOLOGY - GE NERAL ORDERABLES Final Result [facility] [address] [place], [place] [address] [phone] documented in this encounter Visit Diagnoses Diagnosis Frequency of micturition Urinary frequency documented in this encounter Care Teams Wire Technician Relationship Specialty Start Date End Date Andrea Abdullahi MD [address] [place] [address] PCP - General Internal Medicine 12/08/24 documented as of this encounter
== END 2025-05-25 15:37 | disposition home or self-care (01) ==
LOC: HO.US 15:36
PROVIDERS: PCP Internal Medicine; Visit Provider Student in an Organized Health Care Education/Training Program
DX: E01.0 Iodine-deficiency related diffuse (endemic) goiter (principal)
CPT/HCPCS: 76536

== ENCOUNTER → 2025-05-25 15:39 | Outpatient (BNV) | payer MEDICARE, SELFPAY | PROVIDERS: PCP Internal Medicine; Visit Provider Radiology Diagnostic Radiology | DX: E04.2 Nontoxic multinodular goiter (principal) | CPT/HCPCS: 76536 ==

== ENCOUNTER 2025-06-09 09:15 | Outpatient (AMB) | payer MEDICARE, SELFPAY ==
[2025-06-09 09:21] VITALS: BP 122/64; PULSE 52; O2SAT 96; BMI 26.9
--- NOTE | 2025-06-09 09:21 | A.OFFVIS_ITS ---
Vital Signs 3 06/09/25 09:21 Height 5 ft 3 in Weight 152 lb 1.903 oz BMI 26.9 BP 122/64 Blood Pressure Location Rt brachial Position Sitting Pulse 52 Pulse Source Pulse Oximeter Pulse Oximetry (%) 96 Oxygen Delivery Method Room Air Intake Visit Reasons: Hypothyroidism Intake Note: Patient present today for Hypothyroidism office visit. 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 Preferred name Ariane HPI Continue levothyroxine 75 mcg daily. Has been on this for 5 years, stable for some time. No recent TFTs in the chart. reports tiredness. reports cold intolerance. Constipation improved now. Lost 30 lbs after below mentioned surgeries but now gaining it back. no palpitations. No tremors. feels hair is thinner. no mood changes. 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 ? Patient denies any difficulty swallowing, pain on swallowing or voice changes or difficulty breathing. Patient denies any history of childhood neck radiation. Denies having ever used lithium, amiodarone or biotin supplements. Patient denies any family history of thyroid cancer. 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 Another right midpole subcentimeter spongiform nodule noted. None of these meet criteria for follow up. Physical exam General: sitting comfortably in no acute distress HEENT: normocephalic/atraumatic, Neck: supple, prominent right side of the thyroid, possible nodule Cardiac: normal heart sounds Pulm: normal breath sounds B/L, no added breath sounds Abd: not distended, no tenderness Laboratory Tests 04/24/25 14:34 TSH 1.91 Free T4 0.99 EXAMINATION: US THYROID 05/25/25 HISTORY: E01.0 - Iodine-deficiency related diffuse (endemic) goiter TECHNIQUE: Real-time grayscale ultrasound imaging was performed and images were reviewed. COMPARISON: There are no prior studies available for comparison. FINDINGS: SIZE: The right thyroid lobe measures 5.6 x 1.9 x 1.5 cm. The left thyroid lobe measures 4.4 x 1.8 x 1.6 cm. The isthmus measures 2 mm. FLOW: Flow to the gland is normal. ECHOGENICITY: The echotexture of the gland is homogeneous. NODULES: There is a 5 mm spongiform nodule in the midportion of the right thyroid lobe. Additional right-sided nodules are identified as described below: Nodule #: 1 Location: Midportion of the right thyroid lobe measuring 7 x 5 x 7 mm. Shape: Wider than tall (0 points) Margins: Ill-defined (0 points) Echotexture: Isoechoic (1 point) Composition: Mostly solid (2 points) Calcifications: None (0 points) Total points: 3 TIRADS: TR3: Mildly suspicious. Nodule #: 2 Location: Mid to lower pole of the right thyroid lobe measuring 7 x 4 x 8 mm. Shape: Wider than tall (0 points) Margins: Ill-defined (0 points) Echotexture: Isoechoic (1 point) Composition: Mostly solid (2 points) Calcifications: None (0 points) Total points: 3 TIRADS: TR3: Mildly suspicious. US/US thyroid IMPRESSION: Subcentimeter right thyroid nodules as described. None of the nodules meet ACR TI-RADS criteria for fine needle aspiration or follow up. [facility] Medical History (Updated 06/09/25 @ 09:48 by Jacqueline Bates MD) Multinodular goiter (nontoxic) Thyromegaly Hypothyroid HLD (hyperlipidemia) HTN (hypertension) Surgical History H/O bladder repair surgery History of colon resection H/O: hysterectomy Family History Mother Cancer Father Stroke Advanced dementia Social History Alcohol intake: current Alcohol intake frequency: 0-2 drinks per day Patient Tobacco Use Status: Never used Tobacco Physical Exam Vital Signs: Last Vital Signs Pulse 52 06/09/25 09:21 BP 122/64 06/09/25 09:21 Pulse Ox 96 06/09/25 09:21 Oxygen Delivery Method Room Air 06/09/25 09:21 BMI result Body Mass Index 26.9 Assessment & Plan Assessment & Plan (1) Hypothyroid: Code(s): E03.9 - Hypothyroidism, unspecified Category: Medical Qualifiers: 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 04/24/2025: Normal TSH and free T4 At this point she is also feeling much better with regards to her tiredness. I discussed with her that we do not need to see her regularly for her hypothyroidism, if she is comfortable with her primary care managing this, she can continue follow up with them. She is comfortable with this. Plan: -continue levothyroxine 75 mcg daily -PCP to check TFTs annually. (2) Multinodular goiter (nontoxic): Code(s): E04.2 - Nontoxic multinodular goiter Category: Medical Plan: 74-year-old female with no family history of thyroid cancer with no personal history of head or neck radiation who is coming in today for follow up. 05/25/2025: Ultrasound of the thyroid, I reviewed the images myself which showed up subcentimeter 0.7 cm right midpole solid isoechoic nodule, as well as a right mid to lower pole subcentimeter 0.8 cm solid isoechoic TR 3 nodule. Another right midpole subcentimeter spongiform nodule noted. None of these meet criteria for follow up. I reassured her that these are very low risk nodules, and there is no need for any follow up unless there is any clinical changes. Patient verbalized understanding. 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
--- OUTSIDE RECORDS SUMMARY | 2025-06-09 09:22 | XMS_ITS | Encounter Summary ---
Author Organization [facility] Address [address] [place] [address] Care Team Providers Care Segment Assembler Name Role Phone Andrea Abdullahi MD Primary Care Provider [phone] Encounter Details Date Type Department Care Team (Late st Contact Info) Description 12/08/2024 Lab Requisition [facility] - Main Lab [address] [place] [id number] Logan Sánchez MD [address] [address] Frequency of micturition Social History Tobacco Use [...] Urine No growth 12/09/2024 1:15 PM EST [facility] Urine Urine specimen obtained by clean catch procedure / Unknown 12/08/2024 12/08/2024 6:15 PM EST Logan Sánchez MD LAB MICROBIOLOGY - GE NERAL ORDERABLES Final Result [facility] [address] [place], [place] [address] [phone] documented in this encounter Visit Diagnoses Diagnosis Frequency of micturition Urinary frequency documented in this encounter Care Teams Segment Assembler Relationship Specialty Start Date End Date Andrea Abdullahi MD [address] [place] [id number] PCP - General Internal Medicine 12/08/24 documented as of this encounter
--- OUTSIDE RECORDS SUMMARY | 2025-06-09 09:22 | XMS_ITS | Clinical Summary ---
Author Organization [facility] Address [address] [place] [id number] Phone Care Team Providers Care [employer] Name Role Phone Andrea Abdullahi MD Primary Care Provider [phone] Allergies Active Allergy Reactions Criticality Noted Date [...] Payer ( fective 2014-) Name:Marla Watson Member ID:[id number] Relation to Subscriber:Self Name:Marla Watson Subscriber ID:[id number] Payer ID:[id number] Group ID:Not on file Type:Medicare Address: [employer] [address] [employer] SUPPLEMENT MEDICARE PART A & B [employer] SUPPLEMENT MEDICARE PART A & B [employer] SUPPLEMENT MEDICARE PART A & B [employer] SUPPLEMENT MEDICARE PART A & B [employer] SUPPLEMENT MEDICARE PART A & B [employer] SU[employer]LEMENT Care Teams [employer] Relationship Specialty Start Date End Date Andrea Abdullahi MD [address] [place] [id number] PCP - General Internal Medicine 05/13/23 Additional Source Comments The information contained in this document represents components of the legal health record. It is not the complete legal health record.[facility]
== END 2025-06-09 09:47 | disposition home or self-care (01) ==
LOC: HO.ENCR 09:16
PROVIDERS: Visit Provider Student in an Organized Health Care Education/Training Program
DX: E06.3 Autoimmune thyroiditis (principal); E04.2 Nontoxic multinodular goiter
CPT/HCPCS: 99213

== ENCOUNTER → 2025-06-09 09:15 | Outpatient (BNVA) | payer MEDICARE, SELFPAY | PROVIDERS: Visit Provider Student in an Organized Health Care Education/Training Program | DX: E06.3 Autoimmune thyroiditis (principal); E04.2 Nontoxic multinodular goiter | CPT/HCPCS: 99212 ==